=== PATIENT | male | born 1970 | race Caucasian/White ===

== ENCOUNTER 2018-05-24 11:21 | Emergency (ER) | payer SELFPAY ==
[2018-05-24 11:39] VITALS: BP 150/95
--- NOTE | 2018-05-24 11:50 | ED Physician Documentation ---
PD HPI HEENT - Stated complaint Stated Complaint: REQ STREP TEST - Chief complaint Chief Complaint: Heent - History obtained from History obtained from: Patient - History of Present Illness Timing - onset: Today Timing - details: Other (he is without symptoms right now but was taking care of grandkids who have new symptoms/dx of strep throat. Concerned about getting it too.) Location: No: Nose, Throat Associated symptoms: No: Fever, Swollen nodes, Cough Similar symptoms before: Has not had sx before Review of Systems Constitutional: denies: Fever Nose: denies: Rhinorrhea / runny nose, Congestion Throat: denies: Sore throat Respiratory: denies: Cough PD PAST MEDICAL HISTORY - Past Medical History Cardiovascular: None Respiratory: None Endocrine/Autoimmune: None - Present Medications Home Medications: Ambulatory Orders Medication Instructions Recorded Confirmed Amoxicillin 500 mg PO TID #21 capsule 05/24/18 - Allergies Allergies/Adverse Reactions: Allergies Allergy/AdvReac Type Severity Reaction Status Date / Time No Known Drug Allergies Allergy Verified 05/24/18 11:39 - Family History Family history: reports: Non contributory PD ED PE NORMAL - Vitals Vital signs reviewed: Yes - General General: Alert and oriented X 3, No acute distress, Well developed/nourished - Derm Derm: Normal color, Warm and dry - Neuro Neuro: Alert and oriented X 3, No motor deficit, Normal speech Results - Vitals Vitals: Vital Signs - 24 hr 05/24/18 11:37 Temperature 36.0 C L Heart Rate 68 Respiratory 14 Rate Blood Pressure 150/95 H O2 Saturation 98 Oxygen O2 Source Room air - Labs Labs: Laboratory Tests 05/24/18 11:40 Group A Strep Rapid Negative Departure - Departure Disposition: Home, Self Care Clinical Impression: Exposure to strep throat Condition: Stable Record reviewed to determine appropriate education?: Yes Instructions: ED Strep Pharyngitis Poss Prescriptions: Amoxicillin 500 mg PO TID #21 capsule Comments: Drink lots of fluids. Tylenol or ibuprofen as needed for any pains. Your strep test is negative at this point. I wrote a prescription for some amoxicillin should you develop any symptoms since he did have the exposure to it. Started if you have any symptoms develop or if we call you that your culture is positive which will result in a couple of days. Discharge Date/Time: 05/24/18 13:09
== END 2018-05-24 13:09 | disposition home or self-care (01) ==
LOC: ED 11:21
DX: Z20.818 Contact with and (suspected) exposure to other bacterial communicable diseases (principal)
CPT/HCPCS: 87070; 87430; 99282; 99283